=== PATIENT | female | born 1980 | race Asian ===

== ENCOUNTER → 2017-05-14 | Outpatient (CLI) | payer MEDICAID | END | disposition home or self-care (01) | LOC: CFH 08:27 | PROVIDERS: ATTEND Nurse Practitioner | DX: R51 Headache (principal) | CPT/HCPCS: 70450 ==

== ENCOUNTER → 2018-08-10 | Outpatient (CLI) | payer MEDICAID | END | disposition home or self-care (01) | LOC: CFH 09:29 | PROVIDERS: ATTEND Nurse Practitioner | DX: R10.84 Generalized abdominal pain (principal) | CPT/HCPCS: 76700 ==